=== PATIENT | female | born 1995 ===

== ENCOUNTER 2017-01-20 00:54 | Emergency (ER) | payer MEDICAID ==
[2017-01-20 01:08] VITALS: RESP 16; O2SAT 98
[2017-01-20] MEDS ORDERED: DiphenhydrAMINE 50 mg/ml Inj IVP STA (01:33)
[2017-01-20] MEDS ORDERED: Sodium Chloride 0.9% 1,000 ML IV ONE (01:34)
[2017-01-20] MEDS ORDERED: DiphenhydrAMINE 50 mg/ml Inj ONE (02:01)
[2017-01-20] MEDS ORDERED: Acetaminophen IV 1,000 MG in Premixed IV 1 EA IV STA (02:57)
[2017-01-20 03:33] LABS: SQUAMOUS EPITHIAL 15 /hpf (0-5); URINE BACTERIA RARE (<OCC); URINE BILIRUBIN NEGATIVE (NEGATIVE); URINE BLOOD NEGATIVE (NEGATIVE); URINE CLARITY Hazy (Clear); URINE COLOR Yellow (YELLOW); URINE GLUCOSE (UA) NORMAL (Normal); URINE LEUKOCYTE ESTERASE 2+ Leu/uL (Negative); URINE NITRATE NEGATIVE (NEGATIVE); URINE PROTEIN NEGATIVE (NEGATIVE); URINE UROBILINOGEN NORMAL mg/dL (0.2-1.0)
--- NOTE | 2017-01-20 04:06 | C.PDOC ---
History Of Present Illness 21 year old female presents to the ED with complaints of right-sided headache since yesterday. Patient states she is 19 weeks , admits to prior history of headaches of similar quality. She denies abdominal pain, vaginal bleeding/discharge, vomiting/diarrhea, dysuria/hematuria. Time Seen by Provider: 01/20/17 01:27 Chief Complaint (Nursing): Headache History Per: Patient History/Exam Limitations: no limitations Onset/Duration Of Symptoms: Days (since yesterday ) Current Symptoms Are (Timing): Still Present Severity: Mild Preceeding Symptoms: None Associated Symptoms: denies: Photophobia, Blurred Vision, Nausea, Vomiting, Extremity Weakness Past Medical History Reviewed: Historical Data, Nursing Documentation, Vital Signs Vital Signs: Last Vital Signs Temp 98.0 F 01/20/17 03:50 Pulse 78 01/20/17 03:50 Resp 16 01/20/17 03:50 BP 100/68 01/20/17 03:50 Pulse Ox 98 01/20/17 04:28 - Medical History PMH: No Chronic Diseases Family History: States: No Known Family Hx - Social History Hx Alcohol Use: No Hx Substance Use: No - Immunization History Hx Tetanus Toxoid Vaccination: No Hx Influenza Vaccination: No Hx Pneumococcal Vaccination: No Review Of Systems Except As Marked, All Systems Reviewed And Found Negative. Constitutional: Negative for: Fever, Chills Cardiovascular: Negative for: Chest Pain, Palpitations Respiratory: Negative for: Cough, Shortness of Breath Gastrointestinal: Negative for: Nausea, Vomiting, Abdominal Pain, Diarrhea Genitourinary: Negative for: Vaginal Discharge, Vaginal Bleeding Neurological: Positive for: Headache Physical Exam - Physical Exam Appears: Non-toxic, No Acute Distress Skin: Warm, Dry Head: Normacephalic Eye(s): bilateral: Normal Inspection, PERRL, EOMI Oral Mucosa: Moist Neck: Supple Cardiovascular: Rhythm Regular Respiratory: Normal Breath Sounds, No Rales, No Rhonchi, No Wheezing Gastrointestinal/Abdominal: Normal Exam, Bowel Sounds, Soft, No Tenderness, No Distention, No Guarding, No Rebound, Other (abdominal gravid, fundus immediately below umbilicus ) Extremity: Normal ROM, No Tenderness Neurological/Psych: Oriented x3 ED Course And Treatment O2 Sat by Pulse Oximetry: 98 (room air ) Pulse Ox Interpretation: Normal Progress Note: Patient was given IV NS bolus, IV reglan and IV benadryl. On reassessment, patient still had some headache - IV tylenol ordered however pharmacy refused to dispense, states it is reserved for OR/ICU only. PO tylenol ordered. heart tones done by nurse. Reevaluation Time: 03:50 Reassessment Condition: Improved (On reassessment, patient reports her headache has resolved. UA shows mild UTI, PO Macrobid given. Rx given for macrobid, and patient instructed to follow up with PMD/clinic in 1-2 days. She understands she should return to ED if symptoms worsen.) Disposition Counseled Patient/Family Regarding: Studies Performed, Diagnosis, Need For Followup, Rx Given - Disposition Referrals: Trav Cabrera MD [Staff Provider] - Disposition: HOME/ ROUTINE Disposition Time: 03:50 Condition: STABLE Additional Instructions: FOLLOW UP WITH YOUR [employer] ATTENDANT WITHIN 1 WEEK USE MEDICATION INSTRUCTED RETURN TO ER IF SYMPTOMS WORSEN Prescriptions: Nitrofurantoin Macrocrystals [Macrobid] 1 cap PO BID #14 cap Instructions: Acute Headache (ED), Urinary Tract Infection in (ED) Print Language: JAPANESE - POA Present On Arrival: None - Clinical Impression Clinical Impression: Headache, UTI in - Scribe Statement The provider has reviewed the documentation as recorded by the Scribe Alexa Peguero All medical record entries made by the Scribe were at my direction and personally dictated by me. I have reviewed the chart and agree that the record accurately reflects my personal performance of the history, physical exam, medical decision making, and the department course for this patient. I have also personally directed, reviewed, and agree with the discharge instructions and disposition.
[2017-01-20 04:17] VITALS: BP 100/68; PULSE 78; TEMP 98
== END 2017-01-20 03:50 | disposition home or self-care (01) ==
LOC: EDBD 00:54 → C.ER 00:54
DX: R51 Headache (principal); O23.42 Unspecified infection of urinary tract in pregnancy, second trimester; Z3A.19 19 weeks gestation of pregnancy
CPT/HCPCS: 81001; 96374; 96375; 99284; J1200; J2765; J7040